=== PATIENT | male | born 1930 | race Caucasian/White ===

== ENCOUNTER 2016-12-02 18:48 | Inpatient (IN) ==
--- NOTE | 2016-12-02 19:10 | Emergency Department Note ---
General Adult HPI - General Chief complaint: Cold/Flu Symptoms Stated complaint: "Think I have the flu" Time Seen by Provider: 12/02/16 19:07 Source: patient Mode of arrival: ambulatory Limitations: no limitations - History of Present Illness HPI Narrative: This patient has had flulike symptoms for the last several days. His O2 saturation was in the low 80s. He's had a slight cough and shortness of breath. Onset (ago): day(s) - Related Data Allergies Allergy/AdvReac Type Severity Reaction Status Date / Time No Known Drug Allergies Allergy Verified 12/02/16 18:52 Review of Systems Constitutional: Denies: fever Eyes: Denies: eye pain ENT ED: Denies: ear pain Cardiovascular: Reports: chest pain Respiratory: Reports: cough, dyspnea Gastrointestinal: Reports: nausea. Denies: abdominal pain Genitourinary: Denies: urgency Musculoskeletal: Denies: back pain Integumentary: Denies: rash Neurological: Denies: headache Past Medical History - Past Medical History Medical history: Reports: thyroid disease Physical Exam - General Limitations: no limitations General appearance: alert - Head Head exam: atraumatic - Eye Eye exam: Present: normal appearance - ENT ENT exam: normal exam - Neck Neck exam: Present: normal inspection - Chest Chest inspection: Present: normal inspection - Respiratory Respiratory exam: Present: normal lung sounds bilaterally - Cardiovascular Cardiovascular exam: Present: regular rate, normal rhythm, normal heart sounds - Abdominal Exam Abdominal exam: Present: soft, distention, tenderness - Rectal Exam Rectal exam: Present: deferred - Neurological Exam Neurological exam: Present: alert - Psychiatric Psychiatric exam: Present: normal affect - Skin Skin exam: Present: warm, dry Course Vital Signs Temperature 99.8 F H 12/02/16 18:48 Pulse Rate 96 H 12/02/16 18:48 Respiratory Rate 12/02/16 18:48 Blood Pressure 150/72 12/02/16 18:48 Pulse Oximetry (%) 84 L 12/02/16 18:48 Temperature 98.7 F 12/03/16 07:54 Pulse Rate 85 12/03/16 07:54 Respiratory Rate 18 12/03/16 07:54 Blood Pressure 125/77 12/03/16 07:54 Pulse Oximetry (%) 92 12/03/16 07:54 Medical Decision Making - [facility] Narrative Medical decision making narrative: Patient is amenable to hospital for pneumonia by Dr. Rooney - Lab Data Lab results reviewed: Yes I reviewed the patient's lab results. Result diagrams: 12/03/16 03:35 12/03/16 03:35 Lab Results 12/02/16 12/02/16 12/02/16 Range/Units 19:08 19:20 19:20 WBC 5.5 (4.5-11.0) K/mcL RBC 4.44 L (4.50-5.90) M/mcL Hgb 13.3 L (13.5-16.5) g/dL Hct 39.7 L (41.0-55.0) % MCV 89.4 (80.0-100.0) fL MCH 29.9 (26.0-34.0) pg MCHC 33.4 (31.0-36.0) g/dL RDW 14.5 (11.5-14.5) % Plt Count 226 (140-440) K/mcL MPV 6.7 L (7.4-10.4) fL Gran % 76.2 (38.0-78.0) % Lymph % (Auto) 9.6 L (15.5-49.0) % [place] % (Auto) 11.5 H (1.0-9.0) % Eos % (Auto) 1.9 (0.0-7.0) % Baso % (Auto) 0.8 (0.0-2.0) % Gran # 4.2 (1.8-8.0) K/mcL Lymph # 0.5 L (1.5-4.8) K/mcL Perkins # 0.6 (0.1-0.9) K/mcL Eos # 0.1 (0.0-0.7) K/mcL Baso # 0 (0.0-0.3) K/mcL VBG Lactic Acid (0.5-2.2) mmol/L Sodium 132 L (133-145) mmol/L Potassium 4.0 (3.3-5.1) mmol/L Chloride 94 L (96-108) mmol/L Carbon Dioxide 24 (22-30) mmol/L Anion Gap 14.0 (8-16) BUN 12 (8-23) mg/dl Creatinine 1.0 (0.7-1.2) mg/dl GFR Calculation 67 Glucose 102 (70-105) mg/dL Calcium 8.4 L (8.6-10.4) mg/dl Total Bilirubin 0.4 (0.0-1.0) mg/dL AST 22 (0-37) U/l ALT 17 (0-40) U/l Alkaline Phosphatase 86 (39-117) U/L Total Protein 6.9 (5.9-8.4) gm/dL Albumin 4.0 (3.2-5.2) gm/dL Globulin 2.9 (2.2-3.7) gm/dL Albumin/Globulin Ratio 1.4 (1.0-2.3) Urine Color Urine Appearance Urine pH (5.0-9.0) Ur Specific [place] (1.000-1.035) Urine Protein (NEG) mg/dL Urine Glucose (UA) (NEG) mg/dL Urine Ketones (NEG) mg/dL Urine Occult Blood (<0.03) mg/dL Urine Nitrate (NEG) Urine Bilirubin (NEG) mg/dL Urine Urobilinogen (NEG) mg/dL Ur Leukocyte Esterase (NEG) /uL Ur Culture Indicated? Influenza A (Rapid) Presumed negative Influenza B (Rapid) Presumed negative 12/02/16 12/02/16 Range/Units 20:50 21:09 WBC (4.5-11.0) K/mcL RBC (4.50-5.90) M/mcL Hgb (13.5-16.5) g/dL Hct (41.0-55.0) % MCV (80.0-100.0) fL MCH (26.0-34.0) pg MCHC (31.0-36.0) g/dL RDW (11.5-14.5) % Plt Count (140-440) K/mcL MPV (7.4-10.4) fL Gran % (38.0-78.0) % Lymph % (Auto) (15.5-49.0) % Perkins % (Auto) (1.0-9.0) % Eos % (Auto) (0.0-7.0) % Baso % (Auto) (0.0-2.0) % Gran # (1.8-8.0) K/mcL Lymph # (1.5-4.8) K/mcL Perkins # (0.1-0.9) K/mcL Eos # (0.0-0.7) K/mcL Baso # (0.0-0.3) K/mcL VBG Lactic Acid 0.9 (0.5-2.2) mmol/L Sodium (133-145) mmol/L Potassium (3.3-5.1) mmol/L Chloride (96-108) mmol/L Carbon Dioxide (22-30) mmol/L Anion Gap (8-16) BUN (8-23) mg/dl Creatinine (0.7-1.2) mg/dl GFR Calculation Glucose (70-105) mg/dL Calcium (8.6-10.4) mg/dl Total Bilirubin (0.0-1.0) mg/dL AST (0-37) U/l ALT (0-40) U/l Alkaline Phosphatase (39-117) U/L Total Protein (5.9-8.4) gm/dL Albumin (3.2-5.2) gm/dL Globulin (2.2-3.7) gm/dL Albumin/Globulin Ratio (1.0-2.3) Urine Color Yellow Urine Appearance Hazy Urine pH 6.0 (5.0-9.0) Ur Specific [place] 1.012 (1.000-1.035) Urine Protein Neg (NEG) mg/dL Urine Glucose (UA) Negative (NEG) mg/dL Urine Ketones 20 A (NEG) mg/dL Urine Occult Blood Neg (<0.03) mg/dL Urine Nitrate Neg (NEG) Urine Bilirubin Neg (NEG) mg/dL Urine Urobilinogen Neg (NEG) mg/dL Ur Leukocyte Esterase Neg (NEG) /uL Ur Culture Indicated? No Influenza A (Rapid) Influenza B (Rapid) - Radiology Data Radiology results reviewed: Yes I reviewed the patient's radiology results. ( chest x-ray suggestive of pneumonia and confirmed by CT scan.) Disposition Clinical Impression: Pneumonia Disposition: Xfer As Inpt ([facility]) Condition: Fair
[2016-12-02 19:50] LABS: Basophils # (Auto) 0 K/mcL (0.0-0.3); Basophils % (Auto) 0.8 % (0.0-2.0); Eosinophils # (Auto) 0.1 K/mcL (0.0-0.7); Eosinophils % (Auto) 1.9 % (0.0-7.0); Granulocytes % (Auto) 76.2 % (38.0-78.0); Lymphocytes # (Auto) 0.5 K/mcL (1.5-4.8); Lymphocytes % (Auto) 9.6 % (15.5-49.0); Mean Cell Volume 89.4 fL (80.0-100.0); Mean Corpuscular HGB Conc 33.4 g/dL (31.0-36.0); Mean Corpuscular Hemoglobin 29.9 pg (26.0-34.0); Monocytes # (Auto) 0.6 K/mcL (0.1-0.9); Monocytes % (Auto) 11.5 % (1.0-9.0); Platelet Count 226 K/mcL (140-440); RBC 4.44 M/mcL (4.50-5.90); Red Cell Distribution Width 14.5 % (11.5-14.5)
[2016-12-02 20:14] LABS: ALT/SGPT 17 U/l (0-40); Albumin/Globulin Ratio 1.4 (1.0-2.3); Alkaline Phosphatase 86 U/L (39-117); Blood Urea Nitrogen 12 mg/dl (8-23)
[2016-12-02] MEDS ORDERED: cefTRIAXone 1 GM in DEXTROSE 5% IN WATER 50 ML IV ONE (20:35)
[2016-12-02] MEDS ORDERED: LEVOFLOXACIN 500 MG/100 ML BAG IV ONE (20:35)
[2016-12-02] MEDS ORDERED: 0.9 % SODIUM CHLORIDE 1,000 ML IV SCH (20:45)
[2016-12-02 21:59] LABS: Appearance,Urine HAZY; Bilirubin,Urine NEG (NEG); Color,Urine YELLOW; Glucose,Urine (UA) NEGATIVE (NEG); Leukocyte Esterase,Urine NEG /uL (NEG); Nitrate,Urine NEG (NEG); Protein,Urine NEG (NEG); Specific Gravity,Urine 1.012 (1.000-1.035); Urine Blood NEG mg/dL (<0.03); Urobilinogen,Urine NEG (NEG)
--- NOTE | 2016-12-02 23:17 | Internal Med History&Physical ---
Medical - H&P: HPI Patient information: Note initiated : 12/02/16 at 11:14 pm Service Date, if different from initiated Date: [] Patient: Elaine Sanchez a 86 y/o M admitted on for "Think I have the flu". Chief Complaint: [] History of present illness: Mr. Sanchez is a 86 year old male with presents to the ER with not feeling well x 2 days. He was in his usual state of health 2 days ago, when since yesterday he has had increased fatigue and weakness, cough, with no expectoration, shortenss of breath and some wheezing. The patient denies any chest pains, palpitations, dizziness, but does have a mild headache today. This am he went for shopping but when he came back he was too run down, he therefore decided to come to the ER for further treatment. patient in the ER was noted to be hypoxic with sats in 84 opn RA, labs unremarkable, ua negative, but X ray did suggest right upper lobe density. CT scan of the lungs were done which suggested PNA vs Malignancy vs nodule scar. Flu test is reported negative. The patient denies any history of TB in the past, no h/o contact with TB individual, no h/o incarceration. - Constitutional Constitutional: Present: chills, fatigue, fever(s), headache(s), weakness - EENT Eyes: Absent: blurry vision, change in vision Nose, mouth and throat: Absent: disequilibrium, dizziness - Cardiovascular Cardiovascular: Present: irregular heart rhythm. Absent: chest pain, chest pain at rest, palpatations - Respiratory Respiratory: Present: cough, dyspnea on exertion. Absent: hemoptysis, excessive phlegm production, change in phlegm color - Gastrointestinal Gastrointestinal: Absent: abdominal pain, nausea, vomiting - Genitourinary Genitourinary: Present: urinary frequency, urinary urgency. Absent: hematuria - Musculoskeletal Musculoskeletal: Absent: joint swelling, neck pain - Integumentary Integumentary: Absent: wounds, jaundice - Neurological Neurological: Absent: abnormal gait, focal weakness, syncope, vertigo - Psychiatric Psychiatric: Absent: behavioral changes, confusion - Endocrine Endocrine: Absent: polyphagia, polyuria - Hematologic/Lymphatic Hematologic/Lymphatic: Absent: easy bleeding, easy bruising - Allergic/Immunologic Allergic/Immunologic: Present: wheezing. 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 Surgical history: H/o right shoulder rotator cuff surgery. Family history: reviewed and not pertinent Pertinent family history: brother with Ca lung, and sister with pancreatic cancer. 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 Medical - H&P: Meds Allergies Allergy/AdvReac Type Severity Reaction Status Date / Time No Known Drug Allergies Allergy Verified 12/02/16 18:52 Medical - H&P: Exam - Constitutional Vitals: Temp Pulse Resp BP Pulse Ox 99.8 F H 47 L 20 136/66 94 12/02/16 18:48 12/02/16 22:44 12/02/16 19:15 12/02/16 22:44 12/02/16 22:44 General appearance: average body habitus, cooperative, no acute distress - Head Head exam: Present: atraumatic, normal inspection, normocephalic - Eye Eye exam: Present: PERRL. Absent: periorbital swelling, periorbital tenderness , scleral icterus - ENT ENT exam: Present: mucous membranes dry, normal external ear exam - Neck Neck exam: Present: normal inspection - Respiratory Respiratory exam: Present: decreased breath sounds, prolonged expiratory phase, wheezes. Absent: accessory muscle use, respiratory distress, rhonchi, stridor - Cardiovascular Cardiovascular exam: Present: normal rate and rhythm, +S1, +S2 - GI/Abdominal GI/Abdominal exam: Present: normal bowel sounds, soft. Absent: rigid, tenderness - Back Exam Back exam: Present: normal inspection. Absent: tenderness - Neurological Exam Neurological exam: Present: alert, oriented X3. Absent: motor sensory deficit - Psychiatric Psychiatric exam: Absent: agitated, anxious - Skin Skin exam: Present: warm. Absent: rash, urticaria Medical - H&P: Reslt - Labs CBC & Chem 7: 12/02/16 19:20 12/02/16 19:20 Labs: Short CBC 12/02/16 Range/Units 19:20 WBC 5.5 (4.5-11.0) K/mcL Hgb 13.3 L (13.5-16.5) g/dL Hct 39.7 L (41.0-55.0) % Plt Count 226 (140-440) K/mcL BMP 12/02/16 19:20 Sodium 132 L Potassium 4.0 Chloride 94 L Carbon Dioxide 24 BUN 12 Creatinine 1.0 Glucose 102 Calcium 8.4 L Liver Function 12/02/16 Range/Units 19:20 Total Bilirubin 0.4 (0.0-1.0) mg/dL AST 22 (0-37) U/l ALT 17 (0-40) U/l Alkaline Phosphatase 86 (39-117) U/L Albumin 4.0 (3.2-5.2) gm/dL Urine 12/02/16 Range/Units 21:09 Urine Color Yellow Urine Appearance Hazy Urine pH 6.0 (5.0-9.0) Ur Specific [place] 1.012 (1.000-1.035) Urine Protein Neg (NEG) mg/dL Urine Glucose (UA) Negative (NEG) mg/dL Medical - H&P: A/P (1) Pneumonia Current visit: Yes Status: Acute (2) Influenza Current visit: Yes Status: Acute (3) COPD with exacerbation Current visit: Yes Status: Acute (4) Lung mass Current visit: Yes Status: Acute (5) Acute respiratory failure with hypoxia Current visit: Yes Status: Acute - Narrative A/P Narrative: The patient presents with flu like symptoms, CT suggestive of pNA, but normal white count, scar vs malignancy cannot be ruled out, he also has increased oxygen requirements as well as lissa decreased air entry and wheezing. Treat with IV rocephin and zithromax, STart on tamiflu. Give one dose of vancomycin for now, await MRSA, colonization. Oxygen via NC to keep sats > 90 Given his history of irregular heart beat and hypoxia, monitor on telemetery. The patient was unaware that he has copd, CT shows severe emphyseam, So does the CXR, the patient does nto use any inhalers, but admits to progressive worsening shortness of breath over last [address] shows possible mass vs scar, He will need to have repeat CT scan done in 6 weeks, and if lesion still there, he will need to have a PET CT, this has been explained to the patient and his family. This can be arranged by his primary care provider. The patient did not bring in his home medications, therefore we could not resume any, he seems to take asa, levothyroxine and tamsulosin, Will resume once dose is confirmed. DVT prophylaxis- Hep sq Diet CArdiac Code- Full
[2016-12-03] MEDS ORDERED: ONDANSETRON 4 MG/2 ML VIAL IV PRN (00:31)
[2016-12-03] MEDS ORDERED: FLEETS ADULT ENEMA PR PRN (00:31)
[2016-12-03] MEDS ORDERED: BISACODYL 5 MG TABLET PO PRN (00:31)
[2016-12-03] MEDS ORDERED: ACETAMINOPHEN 325 MG TABLET PO PRN (00:31)
[2016-12-03] MEDS ORDERED: cefTRIAXone 1 GM in DEXTROSE 5% IN WATER 50 ML IV SCH (00:31)
[2016-12-03] MEDS ORDERED: VANCOMYCIN 1,000 MG in 0.9 % SODIUM CHLORIDE 250 ML IV ONE (00:31)
[2016-12-03] MEDS ORDERED: AZITHROMYCIN 500 MG in DEXTROSE 5% IN WATER 250 ML IV SCH (00:31)
[2016-12-03] MEDS ORDERED: OSELTAMIVIR PHOSPHATE 75 MG CAPSULE PO ONE (00:50)
[2016-12-03] MEDS ORDERED: AZITHROMYCIN 500 MG VIAL IV ONE (00:50)
[2016-12-03] MEDS ORDERED: DEXTROSE 5% IN WATER 250 ML BAG IV ONE (00:50)
[2016-12-03] MEDS ORDERED: methylPREDNISolone SOD SUCC 125 MG/2 ML VIAL ONE ×2 (00:51→05:42)
[2016-12-03] MEDS: OSELTAMIVIR PHOSPHATE 75 MG CAPSULE PO SCH ×3 (00:56→21:35)
[2016-12-03] MEDS ORDERED: VANCOMYCIN 1 GM VIAL ONE (00:56)
[2016-12-03] MEDS: methylPREDNISolone SOD SUCC 125 MG/2 ML VIAL IV SCH ×4 (01:10→21:36)
[2016-12-03] MEDS ORDERED: IPRATROPIUM/ALBUTEROL 3 ML AMPUL.NEB NEB ONE (01:12)
[2016-12-03] MEDS ORDERED: FAMOTIDINE/PF 20 MG/2 ML VIAL IV ONE (01:12)
[2016-12-03] MEDS ORDERED: HEPARIN 5,000 UNIT/ML VIAL ONE (01:17)
[2016-12-03] MEDS: IPRATROPIUM/ALBUTEROL 3 ML AMPUL.NEB NEB SCH ×6 (02:17→22:47)
[2016-12-03 05:40] LABS: Basophils # (Auto) 0 K/mcL (0.0-0.3); Basophils % (Auto) 0.4 % (0.0-2.0); Eosinophils # (Auto) 0 K/mcL (0.0-0.7); Eosinophils % (Auto) 0.2 % (0.0-7.0); Granulocytes % (Auto) 79.5 % (38.0-78.0); Lymphocytes # (Auto) 0.9 K/mcL (1.5-4.8); Lymphocytes % (Auto) 14.8 % (15.5-49.0); Mean Cell Volume 90.1 fL (80.0-100.0); Mean Corpuscular HGB Conc 32.9 g/dL (31.0-36.0); Mean Corpuscular Hemoglobin 29.7 pg (26.0-34.0); Monocytes # (Auto) 0.3 K/mcL (0.1-0.9); Monocytes % (Auto) 5.1 % (1.0-9.0); Platelet Count 207 K/mcL (140-440); RBC 4.52 M/mcL (4.50-5.90); Red Cell Distribution Width 14.5 % (11.5-14.5)
[2016-12-03 06:11] LABS: ALT/SGPT 17 U/l (0-40); Albumin 3.8 gm/dL (3.2-5.2); Albumin/Globulin Ratio 1.3 (1.0-2.3); Alkaline Phosphatase 81 U/L (39-117); Bilirubin,Direct < 0.2 mg/dL (0.0-0.3); Blood Urea Nitrogen 11 mg/dl (8-23); Gamma Glutamyl Transpeptidase 16 U/L (8-61); Phosphorous 2.6 mg/dL (2.7-4.5)
[2016-12-03] MEDS: HEPARIN 5,000 UNIT/ML VIAL SQ SCH ×2 (08:54→21:35)
[2016-12-03] MEDS: FAMOTIDINE/PF 20 MG/2 ML VIAL IV SCH ×2 (08:54→21:36)
--- NOTE | 2016-12-03 09:43 | XRay Report ---
CLINICAL INFORMATION: Cough COMPARISON: None. FINDINGS: The heart is mildly enlarged. A tortuous thoracic aorta is noted - the remaining mediastinum and pulmonary vessels are normal. Moderate COPD changes are appreciated. A possible 6 cm cavitary mass is seen in the right apex. Follow-up chest CT will be performed. Small pleural effusions noted IMPRESSION: Possible 6 cm cavitary mass in the right lung apex. Follow-up chest CT will be performed. Moderate COPD Mild cardiomegaly Interpreted and Authenticated by: Edgardo Villalpando 12/03/16
[2016-12-03] MEDS: cefTRIAXone 1 GM in DEXTROSE 5% IN WATER 50 ML IV SCH (12:42)
--- NOTE | 2016-12-03 16:11 | Internal Med Progress Note ---
Medical - PN: Subj Patient information: Note initiated : 12/03/16 at 4:09 pm Service Date, if different from initiated Date: [] Patient: Elaine Sanchez 86 y/o M admitted on 12/03/16 for "Think I have the flu ". Chief Complaint: [] Interval history: patient seen examined no acute overnigh events Pt sitting in chair eating breakfast aylin any issues feels breathing is improving. still has some cough, still needs oxygen. Pertinent ROS: Denies headache, dizziness Denies chest pain, palpitations Prsent cough and shortness of breath Denies abdominal pain, nausea or vomiting. - Constitutional Vitals: Vital Signs Temp Pulse Resp BP Pulse Ox 98.3 F 76 16 136/76 96 12/03/16 12:00 12/03/16 14:35 12/03/16 14:35 12/03/16 12:00 12/03/16 14:35 Period Temp Pulse Resp BP Sys/Cartwright Pulse Ox Last 24 Hr 98.3 F-100.6 F 65-90 16-24 113-136/62-77 92-96 Intake and Output 12/03/16 12/03/16 12/03/16 05:59 13:59 21:59 Intake Total 529 / 679 240 / 240 Output Total 375 / 375 600 / 600 Balance 154 / 304 -360 / -360 Weight 140 lb 8 oz Intake & Output: Intake & Output 12/03/16 12/03/16 12/03/16 05:59 13:59 21:59 Intake Total 529 / 679 240 / 240 Output Total 375 / 375 600 / 600 Balance 154 / 304 -360 / -360 Weight 140 lb 8 oz Intake: IV 479 / 479 Sodium Chloride 0.9% 1, 229 / 229 000 ml @ 250 mls/hr IV . Q4H JANIA Rx#:[id number] Dextrose 5% in Water 250 250 / 250 ml @ 250 mls/hr IV Q24H JANIA with Zithromax 500 mg Rx#:[id number] Oral 50 / 50 240 / 240 Output: Void Amount 375 / 375 600 / 600 Other: Meal Lunch Percent of Meal Consumed 100% # Voids 2 # Bowel Movements 1 Exam: Constitutional; Afebrile, cooperative, alert, not in distress. Eyes- No icterus, Pupils equal, reactive, No periorbital swelling Ears- Ext ear normal, hearing normal to conversation. Neck- Midline trachea, supple Respiratory system: Air Entry equal on both side, prlonged expirati, wheezing resolved. CVS- Rate rhythm regular, S1,S2 heard, no gallop, no rub. 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 Medical - PN: Obj Da - Labs CBC & Chem 7: 12/03/16 03:35 12/03/16 03:35 Labs: Abnormal Lab Results 12/03/16 12/03/16 03:35 03:35 Hgb 13.4 L Hct 40.7 L MPV 7.2 L Gran % 79.5 H Lymph % (Auto) 14.8 L Lymph # 0.9 L Anion Gap 17.0 H Calcium 8.2 L Phosphorus 2.6 L Meds: Medications Acetaminophen (Tylenol) 650 mg PO Q6HP PRN PRN Reason: PAIN/FEVER > 101 Albuterol/Ipratropium (Duoneb) 3 ml NEB Q4HRT [facility] Last Admin: 12/03/16 14:30 Dose: 3 ml Bisacodyl (Dulcolax) 10 mg PO DAILYP PRN PRN Reason: Constipation Famotidine (Pepcid) 20 mg IV Q12 [facility] Last Admin: 12/03/16 08:54 Dose: 20 mg Heparin Sodium (Porcine) (Heparin) 5,000 unit SQ Q12 [facility] Last Admin: 12/03/16 08:54 Dose: 5,000 unit Azithromycin 250 mg/ Dextrose 250 mls @ 250 mls/hr IV DAILY [facility] Stop: 12/06/16 09:59 Ceftriaxone Sodium 1 gm/ (Dextrose) 50 mls @ 100 mls/hr IV DAILY [facility] Last Admin: 12/03/16 12:42 Dose: 100 mls/hr Methylprednisolone Sodium Succinate (Solu-Medrol) 62.5 mg IV Q8 [facility] Last Admin: 12/03/16 14:15 Dose: 62.5 mg Ondansetron HCl (Zofran) 4 mg IV Q4HP PRN PRN Reason: Nausea And Vomiting Oseltamivir Phosphate (Tamiflu) 75 mg PO BID [facility] Last Admin: 12/03/16 08:54 Dose: 75 mg Sodium Biphosphate/Sodium Phosphate (Fleets Adult) 1 dose [place] Q3DP PRN PRN Reason: Constipation Medical - PN: A/P - Time Spent With Patient Total time spent is greater than 50% in coordination of care (as documented) at patient's floor/unit and/or counseling patient: (1) Pneumonia Status: Acute Current Visit: Yes (2) Influenza Status: Acute Current Visit: Yes (3) COPD with exacerbation Status: Acute Current Visit: Yes (4) Lung mass Status: Acute Current Visit: Yes (5) Acute respiratory failure with hypoxia Status: Acute Current Visit: Yes - Narrative A/P Narrative: Patient clinically much better I reivwed the film and CT chest with our radioligist, findings likely scar tissue, but the patient will likely benefit from repeat CT 6 weeks out The patient is clinically improving, on abx, steroids, duonebs and tamiflu. still needs oxygen. If continues to get better will d/c am Medical - PN: Qual - VTE Deep Vein Thrombosis/Pulmonary Embolism Present on Admission: No
[2016-12-03] MEDS: AZITHROMYCIN 250 MG in DEXTROSE 5% IN WATER 250 ML IV SCH (16:14)
--- NOTE | 2016-12-03 16:34 | Cat Scan Report ---
CLINICAL INFORMATION: Shortness of breath COMPARISON: None TECHNIQUE: 2.5 mm axial slices were obtained from the lung apices through the bases without intravenous contrast. Sagittal, coronal and axial reformatted images were processed and reviewed at bone, lung and soft tissue windows. 7 mm axial MIP images were also reconstructed. FINDINGS: Pulmonary parenchymal windows show severe centrilobular emphysema changes featuring elevated lung volumes, chronic bronchitis and extensive bullous formation throughout the peripheral upper lobes, right middle lobes and peripheral lower lobes. Moderate scattered scarring and interstitial fibrosis is seen throughout both lungs. Very large bullae have replaced the right lung apex. There is moderate linear airspace disease in the inferior margin of this bullae which are almost certainly represents fibrosis and cicitration atelectasis. It does not have the appearance of abscess cavity - there are no air-fluid levels etc. Moderate sized vague region of groundglass airspace disease in the posterior right upper lobe and right middle lobe likely indicates superimposed infection. Two nodular densities are appreciated: 7.4 mm lateral basilar segment of the left lower lobe (image 94) and 4.4 mm in the right middle lobe (image 84), Mediastinal windows show mildly enlarged central pulmonary arteries compatible with pulmonary hypertension related to COPD. The thoracic aorta contains scattered sclerotic plaque but is normal caliber. The heart is mildly enlarged and there is moderate calcific plaque in the coronary arteries. Very small pericardial effusion is noted. There are no abnormally enlarged mediastinal or hilar lymph nodes. Esophagus is grossly normal. Bones and soft tissues the chest wall are unremarkable. IMPRESSION: 1. Severe centrilobular emphysema featuring elevated lung volumes, chronic bronchitis and multiple bullae replacing the apical and peripheral lower lobe regions with scattered peripheral bullae throughout the remainder the lungs. There are also scattered regions of fibrosis. 2. Small vague infiltrates in the posterior right lower and middle lobes suggestive of superimposed infection. 3. Moderate fibrosis and cicitration atelectasis peripheral to a large bullae in the right apex. There is no evidence of abscess cavity in this region. 4. Mild enlargement of the central pulmonary arteries suggesting pulmonary hypertension related to COPD. 5. 7.4 mm nodule in the lateral basilar segment of the right lower lobe and 4.4 mm nodule in the right middle lobe. Consider follow-up chest CT in 6-12 months. It is understood this may not be clinically appropriate in this particular patient Interpreted and Authenticated by: Edgardo Villalpando 12/03/16
[2016-12-04] MEDS: IPRATROPIUM/ALBUTEROL 3 ML AMPUL.NEB NEB SCH ×6 (04:20→23:17)
[2016-12-04 05:56] LABS: ALT/SGPT 15 U/l (0-40); Albumin 3.6 gm/dL (3.2-5.2); Albumin/Globulin Ratio 1.2 (1.0-2.3); Alkaline Phosphatase 77 U/L (39-117); Bilirubin,Direct < 0.2 mg/dL (0.0-0.3); Blood Urea Nitrogen 13 mg/dl (8-23); Gamma Glutamyl Transpeptidase 17 U/L (8-61); Magnesium 2.2 mg/dL (1.6-2.5); Uric Acid 5.8 mg/dL (2.5-8.0)
[2016-12-04] MEDS: methylPREDNISolone SOD SUCC 125 MG/2 ML VIAL IV SCH ×3 (06:55→21:50)
[2016-12-04] MEDS: cefTRIAXone 1 GM in DEXTROSE 5% IN WATER 50 ML IV SCH (08:00)
[2016-12-04] MEDS: OSELTAMIVIR PHOSPHATE 75 MG CAPSULE PO SCH ×2 (08:59→21:51)
[2016-12-04] MEDS: FAMOTIDINE/PF 20 MG/2 ML VIAL IV SCH ×2 (08:59→21:51)
[2016-12-04] MEDS: HEPARIN 5,000 UNIT/ML VIAL SQ SCH ×2 (08:59→21:50)
[2016-12-04] MEDS ORDERED: PNEUMOCOCCAL 23-VAL P-SAC VAC 0.5 ML VIAL IM ONE (09:00)
[2016-12-04] MEDS: AZITHROMYCIN 250 MG in DEXTROSE 5% IN WATER 250 ML IV SCH (09:32)
--- NOTE | 2016-12-04 11:40 | Internal Med Progress Note ---
Medical - PN: Subj Patient information: Note initiated : 12/04/16 at 11:38 am Service Date, if different from initiated Date: [] Patient: Elaine Sanchez 86 y/o M admitted on 12/03/16 for "Think I have the flu ". Chief Complaint: [] Interval history: The patient seen examined He slept ok no new concerns still sob on activity cough and congestion present The patient was 90% on room air, I had the patient walk approximately 100 yard with a pulse oximetery and his oxygen saturatin dropped to 76%, the patient was fatigued and tired. His Oxygen level promptly improved. The patient is very concerned regarding the congestion in his chest and his fatigue. Pertinent ROS: Denies headache, dizziness Denies chest pain, palpitations admits to cough sob, but no sputum Denies abdominal pain, nausea or vomiting. - Constitutional Vitals: Vital Signs Temp Pulse Resp BP Pulse Ox 97.6 F 82 16 153/94 97 12/04/16 11:17 12/04/16 11:32 12/04/16 11:32 12/04/16 11:17 12/04/16 11:17 Period Temp Pulse Resp BP Sys/Cartwright Pulse Ox Last 24 Hr 97.6 F-98.5 F 60-89 16-20 125-153/63-94 89-97 Intake and Output 12/03/16 12/04/16 12/04/16 21:59 05:59 13:59 Intake Total 780 / 780 300 / 300 50 / 50 Output Total 150 / 150 600 / 600 450 / 450 Balance 630 / 630 -300 / -300 -400 / -400 Weight 140 lb 8 oz Intake & Output: Intake & Output 12/03/16 12/04/16 12/04/16 21:59 05:59 13:59 Intake Total 780 / 780 300 / 300 50 / 50 Output Total 150 / 150 600 / 600 450 / 450 Balance 630 / 630 -300 / -300 -400 / -400 Weight 140 lb 8 oz Intake: IV 300 / 300 50 / 50 Dextrose 5% in Water 250 250 / 250 ml @ 250 mls/hr IV DAILY JANIA with Zithromax 250 mg Rx#:[id number] Dextrose 5% in Water 50 50 / 50 50 / 50 ml @ 100 mls/hr IV DAILY JANIA with Rocephin 1 gm Rx #:[id number] Oral 480 / 480 300 / 300 Output: Void Amount 150 / 150 600 / 600 450 / 450 Other: # Voids 1 2 Exam: Constitutional; Afebrile, cooperative, alert, not in distress. Eyes- No icterus, Pupils equal, reactive, No periorbital swelling Ears- Ext ear normal, hearing normal to conversation. Neck- Midline trachea, supple Respiratory system: Air Entry equal on both sides, decreased air entry, prolonged exp phase CVS- Rate rhythm regular, S1,S2 heard, no gallop, no rub. 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 Medical - PN: Obj Da - Labs CBC & Chem 7: 12/03/16 03:35 12/04/16 03:40 Labs: Abnormal Lab Results 12/04/16 12/03/16 12/03/16 03:40 03:35 03:35 Hgb 13.4 L Hct 40.7 L MPV 7.2 L Gran % 79.5 H Lymph % (Auto) 14.8 L Lymph # 0.9 L Anion Gap 17.0 H Glucose 126 H Calcium 8.2 L Phosphorus 2.6 L Meds: Medications Acetaminophen (Tylenol) 650 mg PO Q6HP PRN PRN Reason: PAIN/FEVER > 101 Albuterol/Ipratropium (Duoneb) 3 ml NEB Q4HRT [facility] Last Admin: 12/04/16 11:30 Dose: 3 ml Bisacodyl (Dulcolax) 10 mg PO DAILYP PRN PRN Reason: Constipation Famotidine (Pepcid) 20 mg IV Q12 [facility] Last Admin: 12/04/16 08:59 Dose: 20 mg Heparin Sodium (Porcine) (Heparin) 5,000 unit SQ Q12 [facility] Last Admin: 12/04/16 08:59 Dose: 5,000 unit Azithromycin 250 mg/ Dextrose 250 mls @ 250 mls/hr IV DAILY [facility] Stop: 12/06/16 09:59 Last Admin: 12/04/16 09:32 Dose: 250 mls/hr Ceftriaxone Sodium 1 gm/ (Dextrose) 50 mls @ 100 mls/hr IV DAILY [facility] Last Infusion: 12/04/16 08:58 Dose: Infused Isosorbide Mononitrate (Imdur) 30 mg PO DAILY [facility] Levothyroxine Sodium (Synthroid) 50 mcg PO QAMAC [facility] Methylprednisolone Sodium Succinate (Solu-Medrol) 62.5 mg IV Q8 [facility] Last Admin: 12/04/16 06:55 Dose: 62.5 mg Ondansetron HCl (Zofran) 4 mg IV Q4HP PRN PRN Reason: Nausea And Vomiting Oseltamivir Phosphate (Tamiflu) 75 mg PO BID [facility] Last Admin: 12/04/16 08:59 Dose: 75 mg Sodium Biphosphate/Sodium Phosphate (Fleets Adult) 1 dose IA Q3DP PRN PRN Reason: Constipation Medical - PN: A/P - Time Spent With Patient Total time spent is greater than 50% in coordination of care (as documented) at patient's floor/unit and/or counseling patient: (1) Pneumonia Status: Acute Current Visit: Yes (2) Influenza Status: Acute Current Visit: Yes (3) COPD with exacerbation Status: Acute Current Visit: Yes (4) Lung mass Status: Acute Current Visit: Yes (5) Acute respiratory failure with hypoxia Status: Acute Current Visit: Yes - Narrative A/P Narrative: The patient continues to improve, but will likely need to stay another day Continue IV steroids Oxygen supplementation Add acapella to improve aeration. Patient was hypoxic and sob on ambulation with oxygen saturations dropping to 76 % on RA, I would assume that the patient will likely need to go home on oxygen. I will continue IV antibiotics, duonebs for now If he continues to improve tomorrow, will get RT eval for home oxygen and then likely d/c home on oxygen on ambulation. Medical - PN: Qual - VTE Deep Vein Thrombosis/Pulmonary Embolism Present on Admission: No
[2016-12-04] MEDS ORDERED: BISACODYL 5 MG TABLET PO PRN (11:48)
[2016-12-04] MEDS ORDERED: ONDANSETRON 4 MG/2 ML VIAL IV PRN (11:48)
[2016-12-04] MEDS ORDERED: FLEETS ADULT ENEMA PR PRN (11:48)
[2016-12-04] MEDS ORDERED: ACETAMINOPHEN 325 MG TABLET PO PRN (11:48)
[2016-12-05] MEDS: IPRATROPIUM/ALBUTEROL 3 ML AMPUL.NEB NEB SCH ×3 (03:46→11:48)
[2016-12-05] MEDS: methylPREDNISolone SOD SUCC 125 MG/2 ML VIAL IV SCH (05:39)
[2016-12-05] MEDS ORDERED: LEVOTHYROXINE 50 MCG TABLET PO SCH ×2 (07:30)
[2016-12-05] MEDS: FAMOTIDINE/PF 20 MG/2 ML VIAL IV SCH (08:06)
[2016-12-05] MEDS: HEPARIN 5,000 UNIT/ML VIAL SQ SCH (08:06)
[2016-12-05] MEDS: OSELTAMIVIR PHOSPHATE 75 MG CAPSULE PO SCH (08:06)
[2016-12-05] MEDS ORDERED: ISOSORBIDE MONONITRATE 60 MG TAB.XL.24H PO SCH ×2 (09:00)
[2016-12-05] MEDS ORDERED: cefTRIAXone 1 GM in DEXTROSE 5% IN WATER 50 ML IV SCH (09:00)
[2016-12-05] MEDS ORDERED: AZITHROMYCIN 250 MG in DEXTROSE 5% IN WATER 250 ML IV SCH (09:00)
--- NOTE | 2016-12-05 10:30 | Discharge Summary ---
Medical - DS: Prov Patient information: Note initiated : 12/05/16 at 10:24 am Service Date, if different from initiated Date: [] Patient: Elaine Sanchez 86 y/o M admitted on 12/04/16 for "Think I have the flu ". Chief Complaint: [] Date of admission: 12/04/16 11:30 Discharge date: 12/05/16 Primary care physician: [f_Reg Prim Care Provider] Admitting clinician: Ivet Rooney Discharging clinician: Ivet Rooney Medical - DS: Meds - Discharge Medications Prescriptions: Ipratropium/Albuterol Sulfate [Combivent] 2 puff INH QID #1 inhaler Levofloxacin 750 mg PO DAILY #5 tablet Oseltamivir Phosphate [Tamiflu] 75 mg PO BID #6 capsule predniSONE [Prednisone] 20 mg PO ONCE #8 tablet Active and Home Medications: Home Medications Isosorbide Mononitrate [Isosorbide Mononitrate ER] 30 mg PO DAILY 12/03/16 [ History Confirmed 12/03/16 Last Taken 12/02/16 09:00] Levothyroxine [Synthroid] 50 mcg PO DAILY 12/03/16 [History Confirmed 12/03/16 Last Taken 12/02/16] Active Medications Acetaminophen (Tylenol) 650 mg PO Q6HP PRN PRN Reason: PAIN/FEVER > 101 Albuterol/Ipratropium (Duoneb) 3 ml NEB Q4HRT [facility] Last Admin: 12/05/16 07:22 Dose: 3 ml Aspirin (Ecotrin) 325 mg PO DAILY JANIA Bisacodyl (Dulcolax) 10 mg PO DAILYP PRN PRN Reason: Constipation Famotidine (Pepcid) 20 mg IV Q12 [facility] Last Admin: 12/05/16 08:06 Dose: 20 mg Heparin Sodium (Porcine) (Heparin) 5,000 unit SQ Q12 [facility] Last Admin: 12/05/16 08:06 Dose: 5,000 unit Azithromycin 250 mg/ Dextrose 250 mls @ 250 mls/hr IV DAILY [facility] Stop: 12/06/16 09:59 Ceftriaxone Sodium 1 gm/ (Dextrose) 50 mls @ 100 mls/hr IV DAILY [facility] Last Admin: 12/05/16 08:07 Dose: 100 mls/hr Isosorbide Mononitrate (Imdur) 30 mg PO DAILY [facility] Last Admin: 12/05/16 08:05 Dose: 30 mg Levothyroxine Sodium (Synthroid) 50 mcg PO QAMAC [facility] Last Admin: 12/05/16 08:06 Dose: 50 mcg Methylprednisolone Sodium Succinate (Solu-Medrol) 62.5 mg IV Q8 [facility] Last Admin: 12/05/16 05:39 Dose: 62.5 mg Ondansetron HCl (Zofran) 4 mg IV Q4HP PRN PRN Reason: Nausea And Vomiting Oseltamivir Phosphate (Tamiflu) 75 mg PO BID [facility] Last Admin: 12/05/16 08:06 Dose: 75 mg Sodium Biphosphate/Sodium Phosphate (Fleets Adult) 1 dose DC Q3DP PRN PRN Reason: Constipation Medical - DS: Hosp Hospital course: Mr. Sanchez is a 86 year old male with h/o CAD/ AFib/ AAA presented to the hospital with complaints of shortness of breath, sough and fatigue, the patient was admitted to the hospital with diagnosis of copd exacerbation/ PNA and likely flu COPD exacerbation: patient does not have a h/o copd as per the patient, his lungs however show significant emphysematous changes, the patient was treated with duonebs, abx and steroids and her responded to treatment. He was however requiring oxygen to maintain his oxygenation levels, On room air he dropped to 86% as per RT today. On ambulation he dropped down to 76% on room air. The patient will be sent home on continuos oxygen for now. He can reevaluate need for oxygen with his pcp. He will also be discharged on Combivent q 6 hrs, RT to educate on use of inhaler prior to d/c Lung mass/ Pneumonia/ Scar tissue: The patient Chest x ray showed right upper lobe infiltrate vs lung mass vs scar, he is being treated for PNA, however given his strong history of smoking in the past, I have advised him to repeat a CT chest in 6 weeks with his PCP to r/o lung cancer. Patient and family agreed for same. The patient tested negative for the flu, however even the prevalence this time, will treat with total of 5 days with tamiflu. ON discharge the patient was nearly back to his baseline status, only needing oxygen to maintain his levels I have not changed any of his home medications and he continues to be in afib, and uses ASA for CVA prophylaxis. Discharge diagnosis: Pneumonia/ COPD Exacerbation - Time Spent with Patient Total time spent providing and/or coordinating discharge services: Medical - DS: Exam - Constitutional Vitals: Vital Signs Temp Pulse Pulse Resp BP BP Pulse Ox 12/05/16 07:28 88 14 92 12/05/16 07:27 88 16 92 12/05/16 07:24 88 14 12/05/16 04:48 87 12/05/16 04:17 98.1 F 73 18 139/81 94 12/05/16 03:27 74 12/05/16 00:54 120 H 12/05/16 00:07 98.5 F 100 H 22 155/76 93 12/05/16 00:01 122 H 12/04/16 23:27 94 12/04/16 23:21 81 16 12/04/16 22:18 83 12/04/16 22:05 121 H 12/04/16 20:08 94 H 16 12/04/16 19:56 96 12/04/16 19:48 89 12/04/16 19:30 90 16 96 12/04/16 19:20 98.0 F 20 132/88 97 12/04/16 18:39 95 H 12/04/16 18:11 115 H 12/04/16 15:37 85 16 12/04/16 15:36 97.9 F 20 148/76 91 12/04/16 11:32 82 16 Intake and Output 12/04/16 12/05/16 12/05/16 21:59 05:59 13:59 Intake Total 660 / 660 350 / 350 Balance 660 / 660 350 / 350 Intake: Oral 660 / 660 350 / 350 Other: Meal Dinner Percent of Meal Consumed 100% Feeding Ability Assist with Tray Set Up # Voids 1 # Bowel Movements 0 Weight 142 lb 8 oz General appearance: cooperative, no acute distress - Head Head exam: Present: atraumatic, normal inspection - Respiratory Respiratory exam: Present: normal respiratory exam, decreased breath sounds. Absent: accessory muscle use, rhonchi, stridor, wheezes - Cardiovascular Cardiovascular exam: Present: irregular rhythm, +S1, +S2 - Neurological Exam Neurological exam: Present: alert, CN II-XII intact, normal gait, oriented X3. Absent: motor sensory deficit Medical - DS: A/P - Patient/Caregiver Discharge Instructions Activity: increase activity as tolerated, wear oxygen at all times Diet: Cardiac Additional Instructions: Follow up with your PCP in 7 days go back to the ER if worsening symptoms, chest pain, or fever You need a CT chest without contrast in 6 weeks to reassess your lung lesions. Your pcp can order this test for you. - Problem Maintenance (1) Pneumonia Status: Acute (2) Influenza Status: Acute (3) COPD with exacerbation Status: Acute (4) Lung mass Status: Acute (5) Acute respiratory failure with hypoxia Status: Acute - Follow up Plan Follow up with: Eladio Malone MD [Primary Care Provider] - Disposition: Home, Self-Care Prognosis: Fair Rehab Potential: Fair I certify that the patient requires SNF services: No Overall status at discharge: patient is progressing back to baseline Medical - DS: Qual - VTE Deep Vein Thrombosis/Pulmonary Embolism Present on Admission: No
[2016-12-05] MEDS ORDERED: ASPIRIN 325 MG ENTERIC COATED TABLET PO SCH (19:28)
== END 2016-12-05 13:10 | disposition home or self-care (01) | DRG 193 ==
LOC: ICU 18:48 → ED 18:48 → ICU 12-03 00:31
PROVIDERS: ADMIT Internal Medicine; ATTEND Internal Medicine

== ENCOUNTER 2017-06-23 16:52 | Inpatient (IN) ==
--- NOTE | 2017-06-23 17:49 | XRay Report ---
CLINICAL INFORMATION: Fever and shortness of breath hypoxia COMPARISON: 12/02/2016 FINDINGS: Moderate cardiomegaly is unchanged. The thoracic aorta is also stable. Central pulmonary arteries are mildly enlarged suggestive of pulmonary hypertension related to COPD. Moderate interstitial infiltrate has developed in the left lower lobe with small left pleural effusion. There is scarring in the right lung apex and base with small right pleural effusion IMPRESSION: 1. Moderate size interstitial infiltrate left base with small effusion 2. Severe COPD 3. Scarring right lung apex and base 4. Enlarged pulmonary artery suggesting pulmonary hypertension Interpreted and Authenticated by: Edgardo Villalpando 06/23/17
[2017-06-23] MEDS ORDERED: cefTRIAXone 1 GM in DEXTROSE 5% IN WATER 50 ML IV ONE (18:00)
[2017-06-23 18:27] LABS: Basophils # (Auto) 0.1 K/mcL (0.0-0.3); Basophils % (Auto) 0.4 % (0.0-2.0); Eosinophils # (Auto) 0.1 K/mcL (0.0-0.7); Eosinophils % (Auto) 0.6 % (0.0-7.0); Granulocytes % (Auto) 86.1 % (38.0-78.0); Lymphocytes # (Auto) 1.1 K/mcL (1.5-4.8); Lymphocytes % (Auto) 8.2 % (15.5-49.0); Mean Cell Volume 91.6 fL (80.0-100.0); Mean Corpuscular HGB Conc 33.1 g/dL (31.0-36.0); Mean Corpuscular Hemoglobin 30.3 pg (26.0-34.0); Monocytes # (Auto) 0.6 K/mcL (0.1-0.9); Monocytes % (Auto) 4.7 % (1.0-12.0); Platelet Count 222 K/mcL (140-440); Red Cell Distribution Width 14.5 % (11.5-14.5)
[2017-06-23 18:51] LABS: ALT/SGPT 13 U/l (0-40); Albumin 3.8 gm/dL (3.2-5.2); Albumin/Globulin Ratio 1.2 (1.0-2.3); Alkaline Phosphatase 86 U/L (39-117); Blood Urea Nitrogen 18 mg/dl (8-23)
--- NOTE | 2017-06-23 19:18 | Emergency Department Note ---
SOB HPI - General Source: patient Mode of arrival: ambulatory Limitations: no limitations - History of Present Illness MD Complaint: shortness of breath Onset (ago): day(s) (3) <Jaun Causey - Last Filed: 06/23/17 19:03> <Juan CarlosRonald Artis - Last Filed: 06/23/17 19:42> - General Chief Complaint: Weakness Stated Complaint: SOB, weakness Time Seen by Provider: 06/23/17 17:10 - History of Present Illness Patient is an 86-year-old male who presents today with shortness of breath, cough with increased sputum production, weakness fevers at home, and 3 days of diarrhea which got better today. He says this started 3 days ago and has gotten worse, the patient is on home oxygen at night, he said that he recently been told he was not COPD, but still had the oxygen. (Juan Causey) - Related Data Home Medications Medication Instructions Recorded Confirmed Isosorbide Mononitrate [Isosorbide 30 mg PO DAILY 12/03/16 06/23/17 Mononitrate ER] Levothyroxine [Synthroid] 50 mcg PO DAILY 12/03/16 06/23/17 Allergies Allergy/AdvReac Type Severity Reaction Status Date / Time No Known Drug Allergies Allergy Verified 06/23/17 16:55 Past Medical History - Past Medical History Medical history: Reports: thyroid disease <Juan Causey - Last Filed: 06/23/17 19:03> Physical Exam - General Limitations: no limitations General appearance: alert - Head Head exam: atraumatic, normocephalic - Eye Eye exam: Present: PERRL, EOMI. Absent: scleral icterus, conjunctival injection - ENT ENT exam: mucous membranes moist - Respiratory Respiratory exam: Present: other (breath sounds are course but vesicular, no significant noted wheezes rales or rhonchi.) - Cardiovascular Cardiovascular exam: Present: regular rate, normal rhythm, normal heart sounds - Abdominal Exam Abdominal exam: Present: soft. Absent: distention, tenderness, guarding, rebound - Neurological Exam Neurological exam: Present: alert, oriented X3 - Psychiatric Psychiatric exam: Present: normal affect, normal mood - Skin Skin exam: Present: warm, dry, intact <Juan Causey - Last Filed: 06/23/17 19:03> Vital Signs Temperature 101.1 F H 06/23/17 16:52 Pulse Rate 96 H 06/23/17 16:52 Respiratory Rate 20 06/23/17 16:52 Blood Pressure 176/97 06/23/17 16:52 Pulse Oximetry (%) 86 L 06/23/17 16:52 Temperature 102 F H 06/23/17 19:40 Pulse Rate 87 06/23/17 19:31 Respiratory Rate 28 H 06/23/17 19:31 Blood Pressure 146/75 06/23/17 19:31 Pulse Oximetry (%) 96 06/23/17 19:31 Shortness of Breath/Dyspnea - Lab Data Result diagrams: 06/23/17 17:24 06/23/17 17:24 <Juan Causey - Last Filed: 06/23/17 19:03> - Lab Data Result diagrams: 06/23/17 17:24 06/23/17 17:24 <Ronald Rangel - Last Filed: 06/23/17 19:42> - Lab Data Lab Results 06/23/17 06/23/17 06/23/17 Range/Units 17:24 17:24 17:24 WBC 13.3 H (4.5-11.0) K/mcL RBC 4.90 (4.50-5.90) M/mcL Hgb 14.9 (13.5-16.5) g/dL Hct 44.8 (41.0-55.0) % MCV 91.6 (80.0-100.0) fL MCH 30.3 (26.0-34.0) pg MCHC 33.1 (31.0-36.0) g/dL RDW 14.5 (11.5-14.5) % Plt Count 222 (140-440) K/mcL MPV 7.6 (7.4-10.4) fL Gran % 86.1 H (38.0-78.0) % Lymph % (Auto) 8.2 L (15.5-49.0) % [place] % (Auto) 4.7 (1.0-12.0) % Eos % (Auto) 0.6 (0.0-7.0) % Baso % (Auto) 0.4 (0.0-2.0) % Gran # 11.5 H (1.8-8.0) K/mcL Lymph # (Auto) 1.1 L (1.5-4.8) K/mcL [place] # (Auto) 0.6 (0.1-0.9) K/mcL Eos # (Auto) 0.1 (0.0-0.7) K/mcL Baso # (Auto) 0.1 (0.0-0.3) K/mcL VBG Lactic Acid 1.3 (0.5-2.2) mmol/L Sodium 135 (133-145) mmol/L Potassium 4.4 (3.3-5.1) mmol/L Chloride 94 L (96-108) mmol/L Carbon Dioxide 24 (22-30) mmol/L Anion Gap 17.0 H (8-16) BUN 18 (8-23) mg/dl Creatinine 1.0 (0.7-1.2) mg/dl GFR Calculation 67 Glucose 99 (70-105) mg/dL Calcium 8.7 (8.6-10.4) mg/dl Total Bilirubin 0.5 (0.0-1.0) mg/dL AST 14 (0-37) U/l ALT 13 (0-40) U/l Alkaline Phosphatase 86 (39-117) U/L Total Protein 7.1 (5.9-8.4) gm/dL Albumin 3.8 (3.2-5.2) gm/dL Globulin 3.3 (2.2-3.7) gm/dL Albumin/Globulin Ratio 1.2 (1.0-2.3) Disposition <Juan Causey - Last Filed: 06/23/17 19:03> Pt seen by PRODUCTION ROUSTABOUT/PA only: No <Ronald Rangel - Last Filed: 06/23/17 19:42> Clinical Impression: Pneumonia Qualifiers: Laterality: left Lung location: lower lobe of lung Disposition: Xfer As Inpt ([facility]) Condition: Fair Referrals: Eladio Malone MD [Primary Care Provider] -
--- NOTE | 2017-06-23 19:41 | Emergency Department Note ---
ED Note Addendum Note Addendum: PT IS FEBILE WITH COUGH, XRAY SHOWS LLL INFILTRATE. lACTIC 1.1 STARTED ON ANTIBIOTICS.. WBC ELEVATED. dR Rios CONTACTED BY STUDENT AND PATIENT ADMITTED FOR PNEUMONIA i Have examined the patient and explained our findings and he agrees to the admissio n
[2017-06-23] MEDS ORDERED: IBUPROFEN 600 MG TABLET PO ONE (19:52)
[2017-06-23] MEDS ORDERED: predniSONE 20 MG TABLET PO SCH (19:59)
[2017-06-23] MEDS ORDERED: ONDANSETRON 4 MG/2 ML VIAL IV PRN (20:52)
[2017-06-23] MEDS ORDERED: NALOXONE HCL 0.4 MG/ML VIAL IV PRN (20:52)
[2017-06-23] MEDS ORDERED: MAGNESIUM HYDROXIDE 30 ML ORAL.SUSP PO PRN (20:52)
[2017-06-23] MEDS ORDERED: oxyCODONE/APAP 5/325MG TABLET PO PRN (20:52)
[2017-06-23] MEDS ORDERED: ACETAMINOPHEN 325 MG TABLET PO PRN (20:52)
--- NOTE | 2017-06-23 20:57 | Internal Med History&Physical ---
Medical - H&P: HPI Patient information: Note initiated : 06/23/17 at 8:54 pm Service Date, if different from initiated Date: [] Patient: Elaine Sanchez 86 y/o M admitted on 06/23/17 for SOB, weakness. Chief Complaint: [] History of present illness: Mr. Sanchez is a 86 year old Male with history of hypertension, hypothyroidism, AAA aneurysm, cOPD, presents to the hospital with shortness of breath and cough , which is been going on for the last 2 days. The patient notes that he was doing well up to that time, when he started having increased cough, cough is associated with yellowish sputum. Going outside in bad weather makes it worse staying indoors helps it a bit. Otherwise, he has no other aggravating or relieving factors. The patient notes that he has gotten progressively short of breath over the last 2 days, this afternoon, his shortness of breath was much more than usual and therefore came to the ER for further evaluation. The patient denies any chest pain. Has intermittent palpitations and has a known history of irregular heartbeat. In the emergency room, the patient's lab work showed leukocytosis, his basic panel was unremarkable, his chest x-ray showed left lower lobebpneumonia 8. Mild effusion, severe COPD, possible pulmonary hypertension. The patient was admitted to the hospital for further management. The patient's blood pressure was stable. Lactic acid is negative. The patient was last admitted to the hospital in November for pneumonia. The patient denies any headache has chronic discharge from his eyes, no difficulty in hearing no difficulty in swallowing, no neck swelling, no chest pain, has cough and shortness of breath, no abdominal pain, no nausea, no vomiting, had some diarrhea which resolved this morning. Denies any joint pains , any skin rashes. Denies any depression, suicidal ideations. All systems: reviewed and no additional remarkable complaints except as stated ( s per HPI) Medical - H&P: PMH Medical history: Medical History (Last Updated 06/23/17 @ 19:42 by Ronald Rangel MD) Pneumonia (Acute) Influenza (Acute) COPD with exacerbation (Acute) Lung mass (Acute) Acute respiratory failure with hypoxia (Acute) Pneumonia (Acute) ypothyroidism, hypertension, benign prostatic hypertrophy,apical aneurysm, chronic obstructive pulmonary disease Surgical history: istory of rotator cuff surgery Pertinent family history: brother with lung cancer, Sister with anxiety, cancer Social history: retired, history of alcohol use, 44 years ago. Ex-smoker, 32-82-jgmy-year history, quit 30 years ago. Denies any recreational drugs. Medical - H&P: Meds Home Medications Medication Instructions Recorded Confirmed Type Isosorbide Mononitrate [Isosorbide 30 mg PO DAILY 12/03/16 06/23/17 History Mononitrate ER] Levothyroxine [Synthroid] 50 mcg PO DAILY 12/03/16 06/23/17 History Allergies Allergy/AdvReac Type Severity Reaction Status Date / Time No Known Drug Allergies Allergy Verified 06/23/17 16:55 Medical - H&P: Exam - Constitutional Vitals: Temp Pulse Resp BP Pulse Ox 102 F H 87 28 H 146/75 96 06/23/17 19:40 06/23/17 19:31 06/23/17 19:31 06/23/17 19:31 06/23/17 19:31 Exam: GENERAL: The patient is a well-developed, well-nourished in no apparent distress. Is alert and oriented x3. VITAL SIGNS: Reviewed and as noted elsewhere. HEENT: Head is normocephalic and atraumatic. Extraocular muscles are intact. Pupils are equal, round, and reactive to light, both eyes have yellowish discharge at angle of the eyes . Nares appeared normal. Mouth appears any without lesions. Mucous membranes are moist. NECK: Normal to inspection, Supple, No lymphadenopathy or thyromegaly. LUNGS: Air entry equal on both sides, no wheezing, crackles or rhonchi noted. No accessory muscles of respiration HEART: Regular rate and rhythm normal, S1 and S2 heard, no Gallop, S3 or Rub Noted, No Gross murmur heard. ABDOMEN: Soft, nontender, and nondistended. Positive bowel sounds. No hepatosplenomegaly was noted. EXTREMITIES: No cyanosis, clubbing, rash, lesions or edema. NEUROLOGIC: Cranial nerves II through XII are grossly intact. Motor and Sensory System Grossly Intact PSYCHIATRIC: Normal affect, Normal Mood. Appropriate Behavior. SKIN: No ulceration or wounds noted, No jaundice, No rash noted. Medical - H&P: Reslt - Labs CBC & Chem 7: 06/23/17 17:24 06/23/17 17:24 Medical - H&P: A/P - Narrative A/P Narrative: A/P Sepsis: due to pneumonia, blood pressure is fine, has temperature, elevated heart rate and a source. Treat nderlying etiology. Community Acquired Pneumonia: last hospitalization 6 months ago, treated with IV Rocephin and Zithromax for now. Await cultures. Hypothyroidism ontinue home dose of thyroid medication. AAA patient has an appointment in [place] coming Tuesday. Not sure if they plan to repair the aortic aneurysm in the abdomen. COPD exacerbation is prolonged expiratory phase and mild wheeze on exam, will treat with dual nebs and steroids, antibiotics as for pneumonia. Acute hypoxic Resp failure: 1. Oxygen supplementation for now. Does not use oxygen at home. DVT heparin subcutaneous Diet cardiac diet Full code.
[2017-06-23] MEDS: FAMOTIDINE 20 MG TABLET PO SCH (23:04)
[2017-06-23] MEDS: predniSONE 20 MG TABLET PO SCH (23:04)
[2017-06-23] MEDS: 0.9 % SODIUM CHLORIDE 1,000 ML IV SCH (23:05)
[2017-06-23] MEDS: HEPARIN 5,000 UNIT/ML VIAL SQ SCH (23:05)
[2017-06-23] MEDS: IPRATROPIUM/ALBUTEROL 3 ML AMPUL.NEB NEB SCH (23:30)
[2017-06-24] MEDS ORDERED: CIPROFLOXACIN 0.3% OPHTH DROPS BOTTLE 5 ML OD SCH
[2017-06-24] MEDS: AZITHROMYCIN 500 MG in DEXTROSE 5% IN WATER 250 ML IV SCH ×2 (00:16→11:52)
[2017-06-24] MEDS: IPRATROPIUM/ALBUTEROL 3 ML AMPUL.NEB NEB SCH ×6 (03:27→23:04)
[2017-06-24 06:05] LABS: Basophils # (Auto) 0 K/mcL (0.0-0.3); Basophils % (Auto) 0.1 % (0.0-2.0); Eosinophils # (Auto) 0.1 K/mcL (0.0-0.7); Eosinophils % (Auto) 0.4 % (0.0-7.0); Lymphocytes # (Auto) 1.4 K/mcL (1.5-4.8); Lymphocytes % (Auto) 10.9 % (15.5-49.0); Mean Cell Volume 89.1 fL (80.0-100.0); Mean Corpuscular HGB Conc 33.7 g/dL (31.0-36.0); Mean Corpuscular Hemoglobin 30.1 pg (26.0-34.0); Monocytes # (Auto) 0.5 K/mcL (0.1-0.9); Monocytes % (Auto) 3.6 % (1.0-12.0); Platelet Count 213 K/mcL (140-440); RBC 4.26 M/mcL (4.50-5.90); Red Cell Distribution Width 13.7 % (11.5-14.5)
[2017-06-24 06:41] LABS: ALT/SGPT 11 U/l (0-40); Albumin 3.2 gm/dL (3.2-5.2); Alkaline Phosphatase 84 U/L (39-117); Bilirubin,Direct < 0.2 mg/dL (0.0-0.3); Blood Urea Nitrogen 17 mg/dl (8-23); Gamma Glutamyl Transpeptidase 13 U/L (8-61); Magnesium 2.2 mg/dL (1.6-2.5); Uric Acid 5.3 mg/dL (2.5-8.0)
[2017-06-24] MEDS ORDERED: LEVOTHYROXINE 50 MCG TABLET PO SCH (07:30)
[2017-06-24] MEDS ORDERED: predniSONE 20 MG TABLET PO SCH (08:00)
[2017-06-24] MEDS ORDERED: TAMSULOSIN 0.4 MG CAPSULE PO SCH ×2 (09:00→21:00)
[2017-06-24] MEDS ORDERED: cefTRIAXone 1 GM in DEXTROSE 5% IN WATER 50 ML IV SCH (09:00)
[2017-06-24] MEDS ORDERED: VITAMIN E (DL,TOCOPHERYL ACET) 400 UNIT CAPSULE PO SCH (09:00)
[2017-06-24] MEDS ORDERED: ISOSORBIDE MONONITRATE 60 MG TAB.XL.24H PO SCH (09:00)
[2017-06-24] MEDS: predniSONE 20 MG TABLET PO SCH (09:01)
[2017-06-24] MEDS: HEPARIN 5,000 UNIT/ML VIAL SQ SCH ×2 (09:01→20:58)
[2017-06-24] MEDS: FAMOTIDINE 20 MG TABLET PO SCH ×2 (09:02→20:06)
[2017-06-24] MEDS: 0.9 % SODIUM CHLORIDE 1,000 ML IV SCH (09:02)
[2017-06-24] MEDS ORDERED: IPRATROPIUM/ALBUTEROL 3 ML AMPUL.NEB NEB ONE (11:06)
[2017-06-24] MEDS ORDERED: MAGNESIUM HYDROXIDE 30 ML ORAL.SUSP PO PRN (15:14)
[2017-06-24] MEDS ORDERED: oxyCODONE/APAP 5/325MG TABLET PO PRN (15:14)
[2017-06-24] MEDS ORDERED: ACETAMINOPHEN 325 MG TABLET PO PRN (15:14)
[2017-06-24] MEDS ORDERED: ONDANSETRON 4 MG/2 ML VIAL IV PRN (15:14)
[2017-06-24] MEDS ORDERED: NALOXONE HCL 0.4 MG/ML VIAL IV PRN (15:14)
--- NOTE | 2017-06-24 15:59 | Internal Med Progress Note ---
Medical - PN: Subj Patient information: Note initiated : 06/24/17 at 3:56 pm Service Date, if different from initiated Date: [] Patient: Elaine Sanchez 86 y/o M admitted on 06/23/17 for SOB, Weakness/ Pneumonia, Sepsis. Chief Complaint: [] Interval history: Mr. Sanchez is a 86 year old Male with history of hypertension, hypothyroidism, AAA aneurysm, cOPD, presents to the hospital with shortness of breath and cough , which is been going on for the last 2 days. The patient notes that he was doing well up to that time, when he started having increased cough, cough is associated with yellowish sputum. Going outside in bad weather makes it worse staying indoors helps it a bit. Otherwise, he has no other aggravating or relieving factors. The patient notes that he has gotten progressively short of breath over the last 2 days, this afternoon, his shortness of breath was much more than usual and therefore came to the ER for further evaluation. The patient denies any chest pain. Has intermittent palpitations and has a known history of irregular heartbeat. In the emergency room, the patient's lab work showed leukocytosis, his basic panel was unremarkable, his chest x-ray showed left lower lobebpneumonia 8. Mild effusion, severe COPD, possible pulmonary hypertension. The patient was admitted to the hospital for further management. The patient's blood pressure was stable. Lactic acid is negative. The patient was last admitted to the hospital in November for pneumonia. The patient denies any headache has chronic discharge from his eyes, no difficulty in hearing no difficulty in swallowing, no neck swelling, no chest pain, has cough and shortness of breath, no abdominal pain, no nausea, no vomiting, had some diarrhea which resolved this morning. Denies any joint pains , any skin rashes. Denies any depression, suicidal ideations. 06/24: patient seen, examined, no acute overnight events, feels much better this morning. Denies any chest pain or shortness of breath but that is better, cough is much better. Is able to tolerate by mouth diet well, the patient is sitting comfortably sitting in the chair he no longer requires oxygen support. Pertinent ROS: Denies headache, dizziness Denies chest pain, palpitations Denies cough or shortness of breath Denies abdominal pain, nausea or vomiting. - Constitutional Vitals: Vital Signs Temp Pulse Resp BP Pulse Ox 98.0 F 75 16 114/58 92 06/24/17 13:37 06/24/17 15:44 06/24/17 15:44 06/24/17 12:23 06/24/17 12:00 Period Temp Pulse Resp BP Sys/Cartwright Pulse Ox Last 24 Hr 97.7 F-99.2 F 68-77 14-20 95-134/57-75 92-98 Intake and Output 06/24/17 06/24/17 06/24/17 05:59 13:59 21:59 Intake Total 250 / 250 980 / 980 Output Total 675 / 675 550 / 550 Balance -425 / -425 430 / 430 Weight 145 lb 11.2 oz Patient Weight 06/25/17 05:59 Weight 145 lb 11.2 oz Intake & Output: Intake & Output 06/24/17 06/24/17 06/24/17 05:59 13:59 21:59 Intake Total 250 / 250 980 / 980 Output Total 675 / 675 550 / 550 Balance -425 / -425 430 / 430 Weight 145 lb 11.2 oz Intake: IV 250 / 250 300 / 300 Zithromax 500 mg In 250 / 250 250 / 250 Dextrose 5% in Water 250 ml @ 250 mls/hr IV Q24H [facility]AN[facility] Rx#:[id number] Rocephin 1 gm In Dextrose 50 / 50 5% in Water 50 ml @ 100 mls/hr IV Q24H JANIA Rx#: [id number] Oral 680 / 680 Output: Urine Catheter Amount 550 / 550 Void Amount 675 / 675 Other: Meal Breakfast Percent of Meal Consumed 100% Feeding Ability Independent # Voids 1 1 # Bowel Movements 1 Exam: Constitutional; Afebrile, cooperative, alert, not in distress. Eyes- No icterus, , No periorbital swelling Ears- Ext ear normal, hearing normal to conversation. Neck- Midline trachea, supple Respiratory system: Air Entry equal on both sides, ecrease air entry bilaterally , prolonged approximately phase, no wheezing, no crackles. CVS- Rate rhythm regular, S1,S2 heard, no gallop, no rub. 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 Medical - PN: Obj Da - Labs CBC & Chem 7: 06/24/17 03:57 06/24/17 03:57 Labs: Abnormal Lab Results 06/24/17 06/24/17 03:57 03:57 WBC 13.3 H RBC 4.26 L Hgb 12.8 L Hct 37.9 L Gran % 85.0 H Lymph % (Auto) 10.9 L Gran # 11.3 H Lymph # (Auto) 1.4 L Glucose 128 H Calcium 8.3 L Meds: Medications Acetaminophen (Tylenol) 650 mg PO Q6HP PRN PRN Reason: PAIN/FEVER > 101 Albuterol/Ipratropium (Duoneb) 3 ml NEB Q4HRT COUNTS INCLUDE 234 BEDS AT THE [facility] Famotidine (Pepcid) 20 mg PO BID COUNTS INCLUDE 234 BEDS AT THE [facility] Heparin Sodium (Porcine) (Heparin) 5,000 unit SQ Q12 COUNTS INCLUDE 234 BEDS AT THE [facility] Azithromycin 500 mg/ Dextrose 250 mls @ 250 mls/hr IV Q24H COUNTS INCLUDE 234 BEDS AT THE [facility] Stop: 06/25/17 10:59 Ceftriaxone Sodium 1 gm/ (Dextrose) 50 mls @ 100 mls/hr IV Q24H COUNTS INCLUDE 234 BEDS AT THE [facility] Isosorbide Mononitrate (Imdur) 30 mg PO DAILY COUNTS INCLUDE 234 BEDS AT THE [facility] Levothyroxine Sodium (Synthroid) 50 mcg PO QAMAC COUNTS INCLUDE 234 BEDS AT THE [facility] Magnesium Hydroxide (Milk Of Magnesia) 30 ml PO DAILYP PRN PRN Reason: Constipation Naloxone HCl (Narcan) 0.1 mg IV Q2MIN PRN PRN Reason: Opiate Reversal Ondansetron HCl (Zofran) 4 mg IV Q4HP PRN PRN Reason: Nausea And Vomiting Oxycodone/Acetaminophen (Percocet 5-325 Mg) 1 tab PO Q4HP PRN PRN Reason: Pain Prednisone (Prednisone) 40 mg PO [facility] Stop: 06/27/17 08:01 Tamsulosin HCl (Flomax) 0.4 mg PO HS COUNTS INCLUDE 234 BEDS AT THE [facility] Vitamin E (Vitamin E) 400 unit PO DAILY COUNTS INCLUDE 234 BEDS AT THE [facility] Medical - PN: A/P - Time Spent With Patient Total time spent is greater than 50% in coordination of care (as documented) at patient's floor/unit and/or counseling patient: - Narrative A/P Narrative: A/P Sepsis: due to pneumonia, Treat underlying etiology, clinically, patient is improving. He has remained afebrile this morning. Blood pressure is well controlled lactic acid is negative. Community Acquired Pneumonia: last hospitalization 6 months ago, treated with IV Rocephin and Zithromax for now. cultures are negative so far. There was a concern that this might be aspiration pneumonia based on the swallowing evaluation, however. Modified barium swallow was negative. Continue present antibiotics as patient is clinically responding well. Hypothyroidism continue home dose of thyroid medication. AAA patient has an appointment in [place] coming Tuesday. Not sure if they plan to repair the aortic aneurysm in the abdomen. COPD exacerbation: linically much better, off oxygen, continue steroids and DuoNeb's Acute hypoxic Resp failure:off oxygen, resolved. M DVT heparin subcutaneous Diet cardiac diet Full code. Medical - PN: Qual - Stroke Symptom Onset Unknown: No - VTE Deep Vein Thrombosis/Pulmonary Embolism Present on Admission: No
[2017-06-24] MEDS: TAMSULOSIN 0.4 MG CAPSULE PO SCH ×2 (18:26→20:05)
[2017-06-24] MEDS: VITAMIN E (DL,TOCOPHERYL ACET) 400 UNIT CAPSULE PO SCH (18:26)
[2017-06-24] MEDS: ISOSORBIDE MONONITRATE 30 MG TAB.XL.24H PO SCH (18:26)
[2017-06-25] MEDS: IPRATROPIUM/ALBUTEROL 3 ML AMPUL.NEB NEB SCH ×2 (03:38→07:06)
[2017-06-25 06:20] LABS: Basophils # (Auto) 0 K/mcL (0.0-0.3); Basophils % (Auto) 0 % (0.0-2.0); Eosinophils # (Auto) 0 K/mcL (0.0-0.7); Eosinophils % (Auto) 0 % (0.0-7.0); Granulocytes % (Auto) 86.9 % (38.0-78.0); Lymphocytes % (Auto) 7.4 % (15.5-49.0); Mean Cell Volume 92.1 fL (80.0-100.0); Mean Corpuscular HGB Conc 33.3 g/dL (31.0-36.0); Mean Corpuscular Hemoglobin 30.7 pg (26.0-34.0); Monocytes # (Auto) 0.8 K/mcL (0.1-0.9); Monocytes % (Auto) 5.7 % (1.0-12.0); Platelet Count 220 K/mcL (140-440); RBC 3.95 M/mcL (4.50-5.90)
[2017-06-25 06:42] LABS: ALT/SGPT 11 U/l (0-40); Albumin 3.2 gm/dL (3.2-5.2); Albumin/Globulin Ratio 1.2 (1.0-2.3); Alkaline Phosphatase 67 U/L (39-117); Bilirubin,Direct < 0.2 mg/dL (0.0-0.3); Blood Urea Nitrogen 16 mg/dl (8-23); Gamma Glutamyl Transpeptidase 11 U/L (8-61); Magnesium 2.2 mg/dL (1.6-2.5); Uric Acid 4.5 mg/dL (2.5-8.0)
[2017-06-25] MEDS ORDERED: LEVOTHYROXINE 50 MCG TABLET PO SCH (07:30)
[2017-06-25] MEDS ORDERED: predniSONE 20 MG TABLET PO SCH (08:00)
[2017-06-25] MEDS: HEPARIN 5,000 UNIT/ML VIAL SQ SCH (08:48)
[2017-06-25] MEDS: ISOSORBIDE MONONITRATE 30 MG TAB.XL.24H PO SCH (08:48)
[2017-06-25] MEDS: FAMOTIDINE 20 MG TABLET PO SCH (08:50)
[2017-06-25] MEDS ORDERED: cefTRIAXone 1 GM in DEXTROSE 5% IN WATER 50 ML IV SCH (09:00)
[2017-06-25] MEDS: VITAMIN E (DL,TOCOPHERYL ACET) 400 UNIT CAPSULE PO SCH (09:09)
--- NOTE | 2017-06-25 09:41 | Discharge Summary ---
Medical - DS: Prov Patient information: Note initiated : 06/25/17 at 9:38 am Service Date, if different from initiated Date: [] Patient: Elaine Sanchez 86 y/o M admitted on 06/23/17 for SOB, Weakness/ Pneumonia, Sepsis. Chief Complaint: [] Date of admission: 06/23/17 20:21 Discharge date: 06/25/17 Primary care physician: Eladio Malone Admitting clinician: Ivet Rooney Discharging clinician: Ivet Rooney Medical - DS: Meds - Discharge Medications Prescriptions: Azithromycin 250 mg PO DAILY #3 tablet Cefdinir 300 mg PO BID #10 capsule predniSONE [Prednisone] 40 mg PO [facility] #6 tablet Active and Home Medications: Home Medications Isosorbide Mononitrate [Isosorbide Mononitrate ER] 30 mg PO DAILY 12/03/16 [ History Confirmed 06/23/17 Last Taken 06/23/17 21:00 30mg] Levothyroxine [Synthroid] 50 mcg PO DAILY 12/03/16 [History Confirmed 06/23/17 Last Taken 06/23/17 07:00 50 mcg] Tamsulosin HCl 0.4 mg PO DAILY 06/23/17 [History Confirmed 06/23/17 Last Taken 06/23/17 21:39] Vitamin E(Dl-Alpha Tocopherol) 400 cap PO DAILY 06/23/17 [History Confirmed 10/30 Last Taken 06/23/17 21:43 400 IU] Medical - DS: Hosp Hospital course: Mr. Sanchez is a 86 year old Male with history of hypertension, hypothyroidism, AAA aneurysm, OPD, presents to the hospital with shortness of breath and cough, which is been going on for 2 days before admission . The patient notes that he was doing well up to that time, when he started having increased cough, cough is associated with yellowish sputum. Going outside in bad weather makes it worse staying indoors helps it a bit. Otherwise, he has no other aggravating or relieving factors. The patient notes that he has gotten progressively short of breath over the last 2 days, this afternoon, his shortness of breath was much more than usual and therefore came to the ER for further evaluation. The patient denies any chest pain. Has intermittent palpitations and has a known history of irregular heartbeat. In the emergency room, the patient's lab work showed leukocytosis, his basic panel was unremarkable, his chest x-ray showed left lower lobe pneumonia 8. Mild effusion, severe COPD, possible pulmonary hypertension. The patient was admitted to the hospital for further management. The patient's blood pressure was stable. Lactic acid is negative. The patient was last admitted to the hospital in November for pneumonia. Pneumonia: Community Acquired pneumonia, treated with azithromax and rocephin with good response, Given this is the second PNA this year, Speech evaluated the patient, swallow study done which was negative. Patient will be discharged home with po antibiotics to complete his course. PO zithromax for another 3 days ,and cefdinir for another 5 days. COPD: The patient has h/o of COPD, but he denies that he has COPD, he note he does not have any symtoms suggestive of COPD and does not want to use a inhaler , last time when this was prescribed to him at last visit, he noted that he did not machine operator picker the prescription as his PCP told him its not needed. I feel that he will benefit from a pulmonary evaluation/ PFT done to evaluate his lung function. Patient has been advised to discuss with his PCP regarding same. I have given him a short burst of steroids for total of 5 days. The rest of the stay in the hospital was not significant, at the time of discharge the patient is hemodynamically stable, tolerating PO diet well and ambulating well. He will be discharged home. Discharge diagnosis: PNA, COPD exacerbation. - Time Spent with Patient Total time spent providing and/or coordinating discharge services: Less than 30 minutes Medical - DS: Exam - Constitutional Vitals: Vital Signs Temp Pulse Pulse Resp BP BP Pulse Ox 06/25/17 07:17 97.8 F 20 115/63 91 06/25/17 07:08 75 18 95 06/25/17 04:00 98.2 F 90 20 131/74 90 06/24/17 23:03 97.6 F 91 H 18 119/71 90 06/24/17 19:58 97.1 F 87 18 136/61 93 06/24/17 19:50 75 18 06/24/17 16:00 97.2 F 90 18 143/70 94 06/24/17 15:44 75 16 06/24/17 13:37 98.0 F 06/24/17 12:23 98.0 F 114/58 06/24/17 12:00 98.2 F 16 114/58 92 06/24/17 11:07 93 06/24/17 11:05 75 14 Intake and Output 06/24/17 06/25/17 06/25/17 21:59 05:59 13:59 Intake Total 800 / 800 350 / 350 300 / 300 Balance 800 / 800 350 / 350 300 / 300 Intake: Oral 800 / 800 350 / 350 300 / 300 Other: Meal Dinner Breakfast Percent of Meal Consumed 75% 75% Feeding Ability Independent # Voids 2 2 Weight 149 lb 8 oz Additional comments: Constitutional; Afebrile, cooperative, alert, not in distress. Eyes- No icterus, , No periorbital swelling Ears- Ext ear normal, hearing normal to conversation. Neck- Midline trachea, supple Respiratory system: Air Entry equal on both sides, No crackles or wheezing, no rhonchi. CVS- Rate rhythm regular, S1,S2 heard, no gallop, no rub. Abdomen- Soft nontender abdomen, no organomegaly, no tenderness, no guarding or rigidity, LEAVE COORDINATOR- AOOx3, moving all extremities, no gross focal deficit noted. Medical - DS: Data Labs on day of discharge: Labs from last 24 hours 06/25/17 06/25/17 04:05 04:05 WBC 13.7 H RBC 3.95 L Hgb 12.1 L Hct 36.4 L MCV 92.1 MCH 30.7 MCHC 33.3 RDW 15.0 H Plt Count 220 MPV 7.4 Gran % 86.9 H Lymph % (Auto) 7.4 L [place] % (Auto) 5.7 Eos % (Auto) 0 Baso % (Auto) 0 Gran # 11.9 H Lymph # (Auto) 1.0 L [place] # (Auto) 0.8 Eos # (Auto) 0 Baso # (Auto) 0 Sodium 135 Potassium 3.8 Chloride 99 Carbon Dioxide 23 Anion Gap 13.0 BUN 16 Creatinine 0.7 GFR Calculation 85 Glucose 96 Uric Acid 4.5 Calcium 8.5 L Phosphorus 2.7 Magnesium 2.2 Total Bilirubin 0.3 Direct Bilirubin < 0.2 GGT 11 AST 12 ALT 11 Alkaline Phosphatase 67 Lactate Dehydrogenase 150 Total Protein 5.9 Albumin 3.2 Globulin 2.7 Albumin/Globulin Ratio 1.2 Triglycerides 62 Medical - DS: A/P - Patient/Caregiver Discharge Instructions Activity: increase activity as tolerated Diet: Regular Diet Additional Instructions: You were admitted to the hospital for PNA and likely COPD exacerbation. Please take your antibiotics as prescribed Talk to your PCP regarding referral to Aviation Electrical Technician. Go to the ER for any worsening shortness of breath, fever, chest pain or any other concerning symptom. Follow up with your PCP in 1 week. stay away from smoke/ polluted environment. - Follow up Plan Follow up with: Eladio Malone MD [Primary Care Provider] - 07/01/17 3:15 pm Disposition: Home, Self-Care Prognosis: Fair Rehab Potential: Fair I certify that the patient requires SNF services: No Overall status at discharge: patient is progressing back to baseline Medical - DS: Qual - VTE Deep Vein Thrombosis/Pulmonary Embolism Present on Admission: No
[2017-06-25] MEDS ORDERED: AZITHROMYCIN 500 MG in DEXTROSE 5% IN WATER 250 ML IV SCH (10:00)
--- NOTE | 2017-06-25 15:17 | XRay Report ---
CLINICAL INFORMATION: Aspiration COMPARISON: None. TECHNIQUE: The exam was performed under the osseous speech pathology. A barium bolus was administered followed by thick and thin barium while dilatation was observed into pharyngeal and upper esophageal region fluoroscopically. Findings: The barium tablet passed into the esophagus easily. After barium administration, tongue elevation and palate depression are normal resulting propulsion of barium into the pharyngeal region. Nasopharyngeus closes normally. Pharyngeal stripping and cricopharyngeal opening are normal for all substances. There is flash filling of laryngeal vestibule due to epiglottis closure on 1-2 episodes. The true vocal cords close normally with no tracheal penetration IMPRESSION: No evidence of celina aspiration - please see above Interpreted and Authenticated by: Edgardo Villalpando 06/25/17
== END 2017-06-25 10:38 | disposition home health service (06) | DRG 871 ==
LOC: ED 16:52 → ICU 20:21 → MEDSUR 06-24 15:12
PROVIDERS: ADMIT Internal Medicine; ATTEND Internal Medicine